=== PATIENT | female | born 1990 | race Caucasian/White ===

== ENCOUNTER 2020-08-14 11:21 | Emergency (ER) | payer MEDICAID ==
[~2020-08-14] VITALS: Ht 172.7 cm; Wt 94.3 kg
--- NOTE | 2020-08-14 11:32 | NUR ---
Patient to ER bed 7 to gown for evaluation. Side rails up. Report given to WERNER MORAN.
--- NOTE | 2020-08-14 11:33 | NUR ---
Patient arrived in the ED c/o HEADACHES THAT STARTED YESTERDAY. Denied any chest pain or shortness of breath. Denied any fevers, chills, nausea or vomiting. Patient is alert and oriented x4, respirations even and unlabored, speaking in full sentences, and ambulating with a steady gait. VSS, pain level 8/10. Informed of the approximate wait time. Instructed to notify ED staff for any changes in condition or worsening of symptoms while waiting to be seen by an ED provider. Patient verbalized understanding.
--- NOTE | 2020-08-14 11:35 | NUR ---
ER at bedside examining patient.
[2020-08-14 11:39] VITALS: BP_SYST 116
[2020-08-14] MEDS ORDERED: KETOROLAC TROMETHAMINE 30 MG VIAL IM ONE (11:45)
--- NOTE | 2020-08-14 11:50 | NUR ---
Patient transported to radiology via , accompanied by [employer] DEVELOPER.
[2020-08-14 12:22] LABS: BARBITURATE, URINE NEGATIVE (NEG <=200); BENZODIAZEPINE, URINE NEGATIVE (NEG <=150); CANNABINOID, URINE NEGATIVE (NEG <=50); COCAINE, URINE NEGATIVE (NEG <=150); METHAMPHETAMINES SCREEN,URINE NEGATIVE (NEG <=500); OPIATE, URINE NEGATIVE (NEG <=100); PHENCYCLIDINE SCREEN,URINE NEGATIVE (NEG <=25); UR TRICYCLIC ANTIDEPRESSANTS NEGATIVE (NEG <=300); URINE AMPHETAMINE NEGATIVE (NEG <=500); URINE METHADONE NEGATIVE (NEG <=200); URINE OXYCODONE SCREEN NEGATIVE (NEG <=100); URINE PROPOXYPHENE SCREEN NEGATIVE (NEG <=300)
[2020-08-14 12:32] VITALS: BP_SYST 116
--- NOTE | 2020-08-14 12:33 | NUR ---
Patient given written and verbal discharge instructions and verbalizes understanding. ER MD discussed with patient the results and treatment provided. Patient in stable condition. ID arm band removed. Rx of NAPROSYN given. Patient educated on pain management and to follow up with PMD. Pain Scale 0/10. Opportunity for questions provided and answered. Medication side effect fact sheet provided.
== END 2020-08-14 12:32 | disposition home or self-care (01) ==
LOC: SED 11:21
DX: R51.9 Headache, unspecified (principal)
CPT/HCPCS: 70450; 76376; 80307; 81025; 96372; 99284; J1885